=== PATIENT | male | born 1975 | race Caucasian/White ===

== ENCOUNTER 2024-07-22 05:40 | Day surgery (SDC) | payer MEDICARE, OTHER, MEDICAID, SELFPAY ==
--- NOTE | 2024-07-21 15:37 | SUR.PREOP ---
Confirm with Alix at [facility] pt to be here at 0600 for surgery tomorrow.
[2024-07-21 15:38] VITALS: BMI 24.1
[2024-07-22] VITALS (9 sets, daily range): BP systolic 100–157; BP diastolic 64–103; PULSE 58–99; RESP 12–21; TEMP 36.2–37.1; O2SAT 95–97; BMI 25.4
[2024-07-22] MEDS: RINGERS LACTATED 1000 ML 1,000 ML 20 ML IV (06:41)
--- NOTE | 2024-07-22 10:08 | ESHP_ITS ---
RE: BLAYNE PALM : 1975 DATE OF ADMISSION: 05/26/2024 HISTORY OF PRESENT ILLNESS: This patient is a 48-year-old white male who was seen in consultation at the [facility]. I saw the patient 2 weeks ago and then again he was seen today. This gentleman was complaining of right inguinal hernia, which has been present for 3 years. Recently, he is having some pain. The patient is not able to reduce this hernia. 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 The patient has been a resident in [facility] only in the past 2 or 3 weeks. PAST SURGICAL HISTORY: He denies any past surgery. HOME MEDICATIONS: He is taking only 1 psychiatric medication and is taking Tylenol for pain. ALLERGIES: NONE. PHYSICAL EXAMINATION: GENERAL: Revealed a well-built, well-nourished white male who is about 5 feet 8 inches tall, weighing 159 pounds. VITAL SIGNS: Revealed a temperature of 97, pulse of 88, respirations 18, BP 112/74. Examination of all the systems are normal. HEENT: Head, eyes, ears, throat normal. CHEST: Revealed good breath sounds on both sides. ABDOMEN: Soft, flat with no palpable abnormality. The patient had a large right inguinal hernia, which is not reducible because it is tender. GENITALIA: Testicles appeared normal on both sides. Left groin failed to show any significant hernia. IMPRESSION: 1. Symptomatic right inguinal hernia. 2. Mild intellectual disability. 3. Psychotic disorder. 4. History of bipolar disorder in the past. COURSE OF ACTION: I advised the patient to undergo repair of this hernia under general anesthesia at [facility]. The patient clearly understands and wants to go ahead with the procedure, which will be scheduled sometime in June. DT: 11:37:00 TT: 12:48:00 Ref: [id number] - TID: [id number]
--- NOTE | 2024-07-22 10:40 | SUR.PHASEI ---
pt received from OR in recovery bay 1. pt obtunded, breathing unlabored on oxymask 6l, oral airway in place. v/s stable. pt dressing to lower abd cdi. report received from Dr. Lambert and Lopez Serna.
--- NOTE | 2024-07-22 10:52 | PD.SUROPNT ---
Date of Procedure 07/22/24 Pre Op Diagnosis Symptomatic right inguinal hernia Post Op Diagnosis Same with both direct and indirect component Procedure Repair of the right inguinal hernia with high ligation of the preperitoneal fat and reconstruction of the inguinal floor with 3 x 6 Marlex mesh Findings Patient is found to have preperitoneal fat accompanying the cord structures which was very bulky. Nursing to the patient had a huge defect medial to the cord structures in the hasselbach Striegel presenting like direct hernia. Therefore he required reconstruction of the floor of the inguinal canal. Procedure Description After the patient was brought to the operating room endotracheal anesthesia given. Lower abdomen was prepped and shaved with ChloraPrep solution. Timeout was performed. Then I made a standard right groin incision for about 8 cm. External oblique was reached and it was opened and patient was found to have a very thick cord structures. I had considerable difficulty in selecting the cord structures. I found out that the patient had a large indirect hernia which presented as bulging coming through the internal ring. After the cord structures I realized that it was large amounts of fatty tissue from the preperitoneal area which was herniating. There was no indirect sac. I clamped the preperitoneal fat with a Bve clamp and tied with 2-0 chromic suture ligature. Patient still had some patulous internal ring. Medially there was a large bulging which appeared to be presenting like a direct hernia. I was able to reduce it. Then I was able to reconstruct the floor by using 3 x 6 Marlex mesh. I folded the mesh and used a double thickness to attach it to the pubic tubercle medially and then internal oblique superiorly in a running fashion with 2-0 Prolene. Inferiorly attached to the shelving edge. When I reached the internal ring I divided the Marlex mesh and encircle the cord structures making the internal ring really snug. Then it was tucked underneath the external oblique laterally and 1 stitch of 2-0 Prolene was used lateral to the cord structures to keep it in place. Then I closed the external oblique in a running fashion with a 2-0 Vicryl. Subcutaneous tissues closed with 3-0 plain by approximating the Umer's fascia. I injected half percent Marcaine the skin was closed with 4-0 Monocryl. Dressing was applied with Adaptic and 4 x 4 gauze and patient tolerated the procedure well and left operating room in stable condition. Anesthesia GETA Implants 3 x 6 Marlex mesh with a double thickness to reconstruct the floor of the i Pathology / specimen None IVF Infused 800 Estimated Blood Loss 30 Condition Stable Disposition PACU Surgeon Boone Gibson MD Surgical Staff Operation Date: 07/22/24 08:00 Case Staff Anesthesiologist: Moose Lambert
[2024-07-22] MEDS: fentaNYL CIT INJ 50 mCg/ML AMP 2ML 25 MCG IV (10:59)
[2024-07-22] MEDS: MEPERIDINE INJ 50 MG/ML VIAL 12.5 MG IVP (11:21)
--- NOTE | 2024-07-22 11:47 | SUR.PHASEII ---
pt able to tolerate oral fluids without difficulty swallowing or nausea/vomiting.
--- NOTE | 2024-07-22 11:56 | ESHP_ITS ---
RE: BLAYNE PALM : 1975 DATE OF ADMISSION: 07/22/2024 HISTORY OF PRESENT ILLNESS: This patient is a 49-year-old white male who was seen in consultation in the [facility] on 05/26/2024. The patient has been complaining of right groin pain and bulging, which has been present for 3 years. Initially, he did not have much symptoms, but of late, he is experiencing pain and he is not able to push this hernia back inside. 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 He also recently diagnosed as bipolar disorder. He is a resident in [facility] in the past couple of months. PAST SURGICAL HISTORY: None. MEDICATIONS: Consisted of taking one psychiatric medication and one Tylenol. ALLERGIES: NONE. PHYSICAL EXAMINATION: GENERAL: Revealed well-built, well-nourished mentally retarded male who is 5 feet 8 inches tall, weighing 159 pounds. VITAL SIGNS: Revealed temperature of 97, pulse 88, respirations 20, BP 112/74. ABDOMEN: Examination of the abdomen showed the patient had a right inguinal hernia, which is not reducible because it is tender. Testicles appeared normal on both sides. Examination of all the systems were normal. IMPRESSION: 1. Symptomatic right inguinal hernia. 2. Bipolar disorder with psychotic disorder. 3. Mild intellectual disability. COURSE OF ACTION: I have advised that the patient undergo repair of this hernia because of the symptoms. This will be done under general anesthesia at [facility]. The patient is agreeable. DT: 11:15:32 TT: 11:47:00 Ref: [id number] - TID: [id number] [facility] [place]
--- NOTE | 2024-07-22 12:20 | SUR.PHASEII ---
pt awake and alert, breathing unlabored on room air. v/s stable. pt dressing to lower abd cdi. pt able to ambulate to wheelchair with steady gait. d/c instructions given with landcare officer in room, all questions answered. pt d/c via wheelchair with all belongings.
== END 2024-07-22 12:20 ==
PROVIDERS: Referring Provider Surgery; Visit Provider Surgery
PROC: (CPT 49505; principal; 2024-07-22 08:00)
DX: K40.90 Unilateral inguinal hernia, without obstruction or gangrene, not specified as recurrent (principal); F31.9 Bipolar disorder, unspecified; F70 Mild intellectual disabilities
CPT/HCPCS: 49505; A4217; A4649; C1781; J0461; J2175; J2250; J2405; J2704; J2765; J3010; J3490; J7120; A9270